=== PATIENT | male | born 1965 | race Caucasian/White ===

== ENCOUNTER → 2018-10-13 | Outpatient (CLI) | payer BC ==
[~2018-10-13] MED LIST: CATAPRES0.1 MG PO; CLINDAMYCIN150 MG PO; COREG25 MG PO; FLEXERIL5 MG PO; LIPITOR20 MG PO; NAPROXEN220 MG PO; TRAMADOL HCL50 MG PO; ZESTRIL20 MG PO
[2018-10-13 11:30] LABS: BODY FLUID WBC 437 /uL
[2018-10-13 12:42] LABS: BF LYMPHOCYTES 42 %; BF MACROPHAGES 52 %; BF NEUTROPHILS 4 %
[2018-10-14 15:06] LABS: ACID FAST SPEC PROCESSING Concentration (.)
== END | disposition home or self-care (01) ==
LOC: LAB 10:24
PROVIDERS: Orthopaedic Surgery
DX: M25.422 Effusion, left elbow (principal)

== ENCOUNTER 2019-10-17 14:12 | Emergency (ER) | payer OTHER ==
[~2019-10-17] VITALS: Ht 185.4 cm; Wt 111.1 kg
[2019-10-17] MEDS ORDERED: FLONASE ALLERG9.9 ML NAS (15:09)
[2019-10-17] MEDS ORDERED: AUGMENTIN 875875 MG PO (15:09)
== END 2019-10-17 15:30 | disposition home or self-care (01) ==
LOC: ED 14:12
DX: J02.9 Acute pharyngitis, unspecified (principal); R59.0 Localized enlarged lymph nodes; I10 Essential (primary) hypertension; I25.10 Atherosclerotic heart disease of native coronary artery without angina pectoris; Z88.6 Allergy status to analgesic agent; Z87.891 Personal history of nicotine dependence